=== PATIENT | female | born 1970 | race Caucasian/White ===

== ENCOUNTER 2020-02-04 13:52 | Emergency (ER) | payer BC ==
--- NOTE | 2020-02-04 14:23 | UC ---
Skin Complaint HPI - HPI Summary HPI Summary: 49-year-old female who removed a tick today from her left inner thigh which had been embedded only a few hours. - History of Current Complaint Time Seen by Provider: 02/04/20 14:15 Stated Complaint: tick bite Hx Obtained From: Patient ?: No Onset/Duration: Gradual Onset Skin Exposure Onset/Duration: Hours Ago Timing: Constant Onset Severity: Mild Current Severity: Mild Location: Other Character: Redness Aggravating Factor(s): Nothing - Left inner thigh. Alleviating Factor(s): Nothing Associated Signs & Symptoms: Positive: Negative - Allergy/Home Medications Allergies/Adverse Reactions: Allergies Allergy/AdvReac Type Severity Reaction Status Date / Time No Known Allergies Allergy Verified 02/04/20 14:25 Home Medications: Home Medications DOXYcycline CAP(*) [DOXYcycline 100MG CAP(*)] 100 mg PO ONCE 1 Days #2 cap 02/03 [Rx] PMH/Surg Hx/FS Hx/Imm Hx Previously Healthy: Yes - Family History Known Family History: Positive: Unknown - Social History Occupation: Employed Full-time Lives: With Family Review of Systems All Other Systems Reviewed And Are Negative: Yes Skin: Positive: Other - One small red area where the tick was embedded. Is Patient Immunocompromised?: No Physical Exam Triage Information Reviewed: Yes Appearance: Well-Appearing, No Pain Distress, Well-Nourished Vital Signs Reviewed: Yes Musculoskeletal Exam: Normal Neurological Exam: Normal Psychological Exam: Normal Skin: Positive: Other - One small 3 mm in diameter bruised/red area left inner thigh where the tick was embedded. No tick parts were visualized. Course/Dx - Course Course Of Treatment: Patient is comfortable here. Although she only had a tick embedded for a few hours she would like to take the doxycycline prophylaxis of 200 mg. Information about Lyme disease was given to the patient. - Diagnoses Provider Diagnosis: Tick bite Discharge ED - Sign-Out/Discharge Documenting (check all that apply): Patient Departure All imaging exams completed and their final reports reviewed: No Studies - Discharge Plan Condition: Good Disposition: HOME Prescriptions: DOXYcycline CAP(*) [DOXYcycline 100MG CAP(*)] 100 mg PO ONCE 1 Days #2 cap Patient Education Materials: Tick Bite (ED) Referrals: Isela Fontaine MD [Primary Care Provider] - Additional Instructions: No dairy products, antacids, multivitamins 2 hours before you take the Doxycycline and 2 hours after you take it. Follow up with your Primary care doctor as neede especially if signs or symptoms of Lyme Disease - Billing Disposition and Condition Condition: GOOD Disposition: Home
[2020-02-04 14:29] VITALS: BP 125/76
== END 2020-02-04 14:40 | disposition home or self-care (01) ==
LOC: UCCORT 13:52
DX: S70.362A Insect bite (nonvenomous), left thigh, initial encounter (principal); W57.XXXA Bitten or stung by nonvenomous insect and other nonvenomous arthropods, initial encounter; Y92.9 Unspecified place or not applicable
CPT/HCPCS: 99202; G0463